=== PATIENT | female | born 1965 | race Caucasian/White ===

== ENCOUNTER 2018-10-01 07:28 | Emergency (ER) | payer OTHER ==
[2018-10-01 07:34] VITALS: BMI 25.9
[2018-10-01 07:36] VITALS: TEMP 98.5
--- NOTE | 2018-10-01 07:56 | C.PDOC ---
History Of Present Illness 52 years old female presents to ED for complaints of vomiting that began 2 days ago. Patient reports associated symptoms of diarrhea that began today. Denies abdominal pain, fever, dysuria, or any other complaints. Time Seen by Provider: 10/01/18 07:39 Chief Complaint (Nursing): GI Problem History Per: Patient History/Exam Limitations: no limitations Onset/Duration Of Symptoms: Hrs Current Symptoms Are (Timing): Still Present Associated Symptoms: Nausea, Vomiting, Diarrhea. denies: Fever, Chills Exacerbating Factors: None Alleviating Factors: None Recent travel outside of the [place]: No Abnormal Vaginal Bleeding: No Past Medical History Reviewed: Historical Data, Nursing Documentation, Vital Signs Vital Signs: Last Vital Signs Temp 98.5 F 10/01/18 07:35 Pulse 91 H 10/01/18 07:35 Resp 16 10/01/18 07:35 BP 96/67 L 10/01/18 07:35 Pulse Ox 96 10/01/18 07:35 - Medical History PMH: Rheumatoid Arthritis Other Surgeries: Full hysterectomy Family History: States: No Known Family Hx - Social History Hx Alcohol Use: No Hx Substance Use: No Review Of Systems Constitutional: Negative for: Fever, Chills Gastrointestinal: Positive for: Nausea, Vomiting, Diarrhea. Negative for: Abdominal Pain Genitourinary: Negative for: Dysuria Skin: Negative for: Rash Neurological: Negative for: Weakness, Numbness Physical Exam - Physical Exam Appears: Non-toxic, No Acute Distress Skin: Normal Color, Warm, Dry, No Rash Head: Atraumatic, Normacephalic Eye(s): bilateral: Normal Inspection, PERRL, EOMI Oral Mucosa: Moist Neck: Supple Chest: Symmetrical, No Tenderness Cardiovascular: Rhythm Regular, No Murmur Respiratory: Normal Breath Sounds, No Rales, No Rhonchi, No Wheezing, Other (NARD) Gastrointestinal/Abdominal: Normal Exam, Bowel Sounds (Active ), Soft, No Tenderness, No Guarding, No Rebound Extremity: Normal ROM Extremity: Bilateral: Atraumatic, Normal Color And Temperature, Normal ROM Pulses: Left Radial: Normal, Right Radial: Normal Neurological/Psych: Oriented x3, Normal Speech Gait: Steady ED Course And Treatment - Laboratory Results Result Diagrams: 10/01/18 08:08 10/01/18 08:08 O2 Sat by Pulse Oximetry: 96 (RA) Pulse Ox Interpretation: Normal Progress - Re-Evaluation Re-evaluation Note: 10/01/18 09:43 PERSIST NAUSEA. VSS. NO ABD PAIN. 10/01/18 11:37 IMPROVED PO TRIAL WO DIFF - Data Reviewed Data Reviewed: Lab, Diagnostic imaging Medical Decision Making Medical Decision Making: Plan: * Zofran * IV Fluids * Blood work Disposition Counseled Patient/Family Regarding: Studies Performed, Diagnosis, Need For Followup, Rx Given - Disposition Referrals: YOUR,PMD [Other] Disposition: HOME/ ROUTINE Disposition Time: 11:38 Condition: IMPROVED Additional Instructions: DRINK ELECTROLYTE SOLUTION INSTRUCTED (GATORADE, PEDIALYTE) Prescriptions: Prochlorperazine [Compazine] 10 mg PO TID #12 tab Instructions: Nausea and Vomiting, Adult (DC), Hypokalemia (DC) Forms: [employer] (Tunisian) - Clinical Impression Clinical Impression: Vomiting, Hypokalemia - Scribe Statement The provider has reviewed the documentation as recorded by the Scribjennifer Nicholson All medical record entries made by the Scribe were at my direction and personally dictated by me. I have reviewed the chart and agree that the record accurately reflects my personal performance of the history, physical exam, medical decision making, and the department course for this patient. I have also personally directed, reviewed, and agree with the discharge instructions and disposition.
[2018-10-01 08:28] LABS: BASO # 0.1 K/uL (0.0-0.2); BASO % 1.4 % (0.0-2.0); HEMOGLOBIN 12.9 g/dL (11.0-16.0); LYMPH # 1.3 K/uL (1.0-4.3); LYMPH % 33.8 % (20.0-40.0); MEAN CORPUSCULAR HEMOGLOBIN 27.1 pg (27.0-31.0); MEAN CORPUSCULAR HGB CONC 33.4 g/dL (33.0-37.0); MEAN PLATELET VOLUME 8.1 fL (7.2-11.7); MONO # 0.5 K/uL (0.0-0.8); MONO % 13.6 % (0.0-10.0); NEUT # 1.9 K/uL (1.8-7.0); NEUT % 51.2 % (50.0-75.0); NRBC % 0.2 % (0.0-2.0); RBC 4.76 Mil/uL (3.80-5.20); RED CELL DISTRIBUTION WIDTH 15.3 % (11.5-14.5); WHITE BLOOD COUNT 3.7 K/uL (4.8-10.8)
[2018-10-01 08:36] LABS: BLOOD UREA NITROGEN 12 mg/dL (7-17); CALCIUM 8.7 mg/dl (8.6-10.4); GFR NON-AFRICAN AMERICAN > 60
[2018-10-01] MEDS ORDERED: Potassium Chloride 20 mEq/15 ml LIQ UD PO STA (08:51)
[2018-10-01] MEDS ORDERED: Potassium Chloride 20 mEq ER Tab PO ONE (09:02)
[2018-10-01] MEDS ORDERED: Sodium Chloride 0.9% 2,000 ML ONE (09:03)
[2018-10-01] MEDS ORDERED: Sodium Chloride 0.9% 250 ML IV ONE (09:03)
[2018-10-01 10:28] VITALS: BP 108/72; PULSE 86; RESP 76
[2018-10-01 11:39] VITALS: O2SAT 96
== END 2018-10-01 11:50 | disposition home or self-care (01) ==
LOC: C.ER 07:28
DX: E87.6 Hypokalemia (principal); R11.2 Nausea with vomiting, unspecified; M06.9 Rheumatoid arthritis, unspecified
CPT/HCPCS: 80048; 85025; 96372; 96374; 99284; J0780; J2405; J3480; J7030